=== PATIENT | female | born 1935 | race Caucasian/White ===

== ENCOUNTER 2024-01-27 17:08 | Emergency (ER) | payer MEDICARE ==
[~2024-01-27] VITALS: Wt 65.8 kg
[~2024-01-27 17:08] MED LIST: ACETAMINOPHEN325 M2 PO; AMLODIPINE BESY10 MG PO; APRESOLINE25 MG PO; ASPIRIN 81 MG; ASPIRIN CHEWABL81 MG PO; B COMPLEX1 EACH PO; DAILY VALUE1 EACH PO; DULOXETINE HCL30 MG PO; HUMALOG100 UNIT/2 SC; HYDROXYZINE PAM25 M1 PO; IMIPRAMINE HCL50 MG PO; IMIPRAMINE PAM100 MG PO; IRBESARTAN300 M1 PO; LEADER NATUR1000 MCG PO; MECLIZINE HCL25 M2 PO; MILK OF MA2400 MG/11 PO; MIRTAZAPINE7.5 MG PO; ONDANSETRON HYDR4 M1 PO; ONDANSETRON4 MG SL; OXYBUTYNIN5 MG PO; TOFRANIL10 MG PO; XANAX0.5 MG PO
[2024-01-27 17:29] LABS: MEAN CELL VOLUME 89.5 fl (81.0-99.0); MEAN CORPUSCULAR HGB 29.4 pg (27.0-31.0); MEAN CORPUSCULAR HGB CONC 32.8 g/dl (33.0-37.0); MEAN PLATELET VOLUME 8.2 fl (9.6-12.3); NUCLEATED RED BLOOD CELL 0.1 10*3/uL (0.0-0.0); NUCLEATED RED BLOOD CELL 1.2 % (0.0-0.0); PLATELET COUNT AUTOMATED 244 10*3/uL (130-400); RED BLOOD COUNT 2.28 10*6/uL (4.10-5.10); RED CELL DISTRI WIDTH 24.1 % (0-14.5); WHITE BLOOD COUNT 8.4 10*3/uL (4.8-10.8)
[2024-01-27 17:35] LABS: HEMATOCRIT 20.4 % (37.0-47.0); MANUAL DIFF REFLEX YES
[2024-01-27 17:46] LABS: BUN 14 mg/dl (9-23); CHLORIDE 106 mmol/L (98-107); POTASSIUM 3.4 mmol/L (3.4-5.1)
[2024-01-27 17:51] LABS: TOTAL CELLS COUNTED 100 #CELLS
[2024-01-27 17:52] LABS: PLATELET SUFFICIENCY NORMAL (NORMAL)
[2024-01-27 17:53] LABS: POLYCHROMASIA SLIGHT; TARGET CELLS FEW
[2024-01-27] MEDS ORDERED: VENT7GM INH (17:57)
[2024-01-27] MEDS ORDERED: 'XANAX0.5 MG PO (17:57)
[2024-01-27] MEDS ORDERED: HYDRALAZINE HC100 MG PO (17:58)
[2024-01-27] MEDS ORDERED: BREO ELLIPTA 11 EACH INH (17:58)
[2024-01-27] MEDS ORDERED: METFORMIN HYD1000 MG PO (17:59)
[2024-01-27] MEDS ORDERED: LOSARTAN POTAS100 M1 PO (17:59)
[2024-01-27] MEDS ORDERED: METOPROLOL SUCC50 M1 PO (17:59)
[2024-01-27] MEDS ORDERED: MIRTAZAPINE7.5 MG PO (18:00)
[2024-01-27] MEDS ORDERED: Ondansetron4 MG PO (18:00)
[2024-01-27] MEDS ORDERED: PROTONIX40 MG PO (18:01)
[2024-01-27] MEDS ORDERED: TRANSDERM-SCOP1 EAC1 T (18:01)
[2024-01-27] MEDS ORDERED: VITAMIN B COMP1 EAC1 PO (18:02)
[2024-01-27] MEDS ORDERED: SODIUM CHLORI1000 M5 MC (18:02)
[2024-01-27 19:45] VITALS: BP 196/57
[2024-01-27] MEDS ORDERED: SODIUM CHLORIDE 0.9% 500 ML IV ONE (19:49)
[2024-01-27 20:15] VITALS: BP 186/66
[2024-01-27 21:00] VITALS: BP 200/90
[2024-01-27 21:40] VITALS: BP 180/59
[2024-01-28] MEDS ORDERED: SODIUM CHLORIDE 0.9% 500 ML IV ONE (00:04)
[2024-01-28] MEDS ORDERED: ACETAMINOPHEN 325 MG TAB PO ONE (00:05)
[2024-01-28 00:15] VITALS: BP 175/80
[2024-01-28 00:45] VITALS: BP 180/69
[2024-01-28 01:16] VITALS: BP 174/48
[2024-01-28 02:07] VITALS: BP 187/90
== END 2024-01-28 03:07 ==
LOC: ED 17:08
PROVIDERS: Internal Medicine
DX: D63.1 Anemia in chronic kidney disease (principal); E87.1 Hypo-osmolality and hyponatremia; E11.22 Type 2 diabetes mellitus with diabetic chronic kidney disease; I12.9 Hypertensive chronic kidney disease with stage 1 through stage 4 chronic kidney disease, or unspecified chronic kidney disease; N18.31 Chronic kidney disease, stage 3a; F17.200 Nicotine dependence, unspecified, uncomplicated; Z90.710 Acquired absence of both cervix and uterus

== ENCOUNTER 2024-02-02 05:07 | Emergency (ER) | payer MEDICARE ==
[~2024-02-02] VITALS: Wt 61.0 kg
[~2024-02-02 05:07] MED LIST changes: +'XANAX0.5 MG PO; +BREO ELLIPTA 11 EACH INH; +HYDRALAZINE HC100 MG PO; +LOSARTAN POTAS100 M1 PO; +METFORMIN HYD1000 MG PO; +METOPROLOL SUCC50 M1 PO; +Ondansetron4 MG PO; +PROTONIX40 MG PO; +SODIUM CHLORI1000 M5 MC; +TRANSDERM-SCOP1 EAC1 T; +VENT7GM INH; +VITAMIN B COMP1 EAC1 PO
[2024-02-02 05:40] LABS: BILIRUBIN Negative (Negative); BLOOD Negative (Negative); CLARITY Clear (Clear); COLOR Yellow (Yellow); GLUCOSE Negative (Negative); KETONE Trace (Negative); LEUKO ESTERASE Negative (Negative); NITRITE Negative (Negative); UROBILINOGEN 0.2 E.U./dl (0.0-1.0)
[2024-02-02 05:47] LABS: HYALINE CAST 0-2; MUCOUS TRACE; RBC 0-2 rbc/hpf (0-2); WBC 0-2 wbc/hpf (0-5)
[2024-02-02 05:49] LABS: BUN 11 mg/dl (9-23); CHLORIDE 104 mmol/L (98-107); POTASSIUM 3.2 mmol/L (3.4-5.1)
[2024-02-02] MEDS ORDERED: ACETAMINOPHEN 325 MG TAB PO ONE (06:25)
[2024-02-02 06:34] LABS: BASO % 0.7 % (0.0-1.0); EOS # 0.1 10*3/uL (0.0-0.4); EOS % 1.3 % (1.0-4.0); HEMATOCRIT 32.2 % (37.0-47.0); LYMPH # 1.1 10*3/uL (1.3-4.4); LYMPH % 24.8 % (27.0-41.0); MEAN CELL VOLUME 88.5 fl (81.0-99.0); MEAN CORPUSCULAR HGB 29.7 pg (27.0-31.0); MEAN CORPUSCULAR HGB CONC 33.5 g/dl (33.0-37.0); MEAN PLATELET VOLUME 8.5 fl (9.6-12.3); MONO # 0.6 10*3/uL (0.1-1.0); MONO % 12.6 % (3.0-9.0); NEUT # 2.8 10*3/uL (2.3-7.9); NEUT % 60.2 % (47.0-73.0); PLATELET COUNT AUTOMATED 305 10*3/uL (130-400); RED BLOOD COUNT 3.64 10*6/uL (4.10-5.10); RED CELL DISTRI WIDTH 20.4 % (0-14.5); WHITE BLOOD COUNT 4.6 10*3/uL (4.8-10.8)
[2024-02-02] MEDS ORDERED: POTASSIUM CHLORIDE 20 MEQ TAB PO ONE (07:25)
== END 2024-02-02 07:44 ==
LOC: ED 05:07
PROVIDERS: Internal Medicine
DX: R55 Syncope and collapse (principal); I10 Essential (primary) hypertension; E11.9 Type 2 diabetes mellitus without complications; F17.200 Nicotine dependence, unspecified, uncomplicated; Z90.710 Acquired absence of both cervix and uterus; Z98.890 Other specified postprocedural states

== ENCOUNTER 2024-02-06 08:38 | Emergency (ER) | payer MEDICARE ==
[2024-02-06 09:24] LABS: ALKALINE PHOSPHATASE 65 U/L (46-116); BUN 7 mg/dl (9-23); CHLORIDE 106 mmol/L (98-107); POTASSIUM 3.4 mmol/L (3.4-5.1); SGPT/ALT 19 U/L (5-49); TOTAL PROTEIN 6.2 gm/dL (6.0-8.0)
[2024-02-06 09:36] LABS: BASO % 0.6 % (0.0-1.0); EOS # 0.1 10*3/uL (0.0-0.4); EOS % 1.6 % (1.0-4.0); HEMATOCRIT 31.5 % (37.0-47.0); LYMPH # 0.8 10*3/uL (1.3-4.4); LYMPH % 16.2 % (27.0-41.0); MEAN CELL VOLUME 89.7 fl (81.0-99.0); MEAN CORPUSCULAR HGB 29.3 pg (27.0-31.0); MEAN CORPUSCULAR HGB CONC 32.7 g/dl (33.0-37.0); MEAN PLATELET VOLUME 8.1 fl (9.6-12.3); MONO # 0.6 10*3/uL (0.1-1.0); NEUT # 3.3 10*3/uL (2.3-7.9); NEUT % 67.8 % (47.0-73.0); PLATELET COUNT AUTOMATED 330 10*3/uL (130-400); RED BLOOD COUNT 3.51 10*6/uL (4.10-5.10); RED CELL DISTRI WIDTH 19.6 % (0-14.5); WHITE BLOOD COUNT 4.9 10*3/uL (4.8-10.8)
[2024-02-06] MEDS ORDERED: Ondansetron Hydrochloride 4 MG TAB SL ONE (10:20)
[2024-02-06 10:27] LABS: BILIRUBIN Negative (Negative); BLOOD Negative (Negative); CLARITY Clear (Clear); COLOR Yellow (Yellow); GLUCOSE Negative (Negative); KETONE Negative (Negative); LEUKO ESTERASE Negative (Negative); NITRITE Negative (Negative); PH 5.5 (4.5-8.0); SPECIFIC GRAVITY <= 1.005 (1.001-1.030); UROBILINOGEN 0.2 E.U./dl (0.0-1.0)
[2024-02-06] MEDS ORDERED: Ondansetron4 MG PO (11:04)
[2024-02-06] MEDS ORDERED: MAGNESIUM OXIDE 400 MG TAB PO ONE (11:05)
== END 2024-02-06 11:06 | disposition home or self-care (01) ==
LOC: ED 08:38
PROVIDERS: Internal Medicine
DX: R11.2 Nausea with vomiting, unspecified (principal); R42 Dizziness and giddiness; E83.42 Hypomagnesemia; E11.22 Type 2 diabetes mellitus with diabetic chronic kidney disease; I12.9 Hypertensive chronic kidney disease with stage 1 through stage 4 chronic kidney disease, or unspecified chronic kidney disease; N18.9 Chronic kidney disease, unspecified; F03.90 Unspecified dementia, unspecified severity, without behavioral disturbance, psychotic disturbance, mood disturbance, and anxiety; D63.1 Anemia in chronic kidney disease; Z90.710 Acquired absence of both cervix and uterus; Z98.890 Other specified postprocedural states

== ENCOUNTER → 2024-04-24 | Outpatient (CLI) | payer MEDICARE ==
[2024-04-24] VITALS (7 sets, daily range): BP systolic 156–174; BP diastolic 40–67
[~2024-04-24] MED LIST changes: +ALPRAZolam 0.25 MG TAB PO ONE; +LASIX20 MG PO; +PROCHLORPERAZINE5 M2 PO; +SODIUM CHLORIDE 0.9% 250 ML IV SCH; +SODIUM CHLORIDE 0.9% 500 ML IV ONE; +SODIUM CHLORIDE 0.9% 500 ML IV SCH
== END | disposition home or self-care (01) ==
LOC: TRNFUSION 11:30
PROVIDERS: ATTEND Student in an Organized Health Care Education/Training Program
DX: D64.9 Anemia, unspecified (principal); C95.90 Leukemia, unspecified not having achieved remission; F32.9 Major depressive disorder, single episode, unspecified; E11.22 Type 2 diabetes mellitus with diabetic chronic kidney disease; I12.9 Hypertensive chronic kidney disease with stage 1 through stage 4 chronic kidney disease, or unspecified chronic kidney disease; F41.9 Anxiety disorder, unspecified; F03.90 Unspecified dementia, unspecified severity, without behavioral disturbance, psychotic disturbance, mood disturbance, and anxiety; N18.9 Chronic kidney disease, unspecified; Z90.710 Acquired absence of both cervix and uterus; Z87.440 Personal history of urinary (tract) infections; Z90.10 Acquired absence of unspecified breast and nipple

== ENCOUNTER 2024-05-21 11:21 | Inpatient (IN) | payer MEDICARE ==
[2024-05-21] VITALS (8 sets, daily range): BP systolic 94–156; BP diastolic 42–65
[~2024-05-21] VITALS: Ht 167.6 cm; Wt 64.5 kg
[~2024-05-21 11:21] MED LIST changes: -ALPRAZolam 0.25 MG TAB PO ONE; +NYST SUSP PO; +PREDNISONE5 MG PO; -SODIUM CHLORIDE 0.9% 250 ML IV SCH; -SODIUM CHLORIDE 0.9% 500 ML IV ONE; -SODIUM CHLORIDE 0.9% 500 ML IV SCH
[2024-05-21] MEDS ORDERED: SODIUM CHLORIDE 0.9% 1,000 ML IV ONE ×2 (11:30→11:45)
[2024-05-21] MEDS ORDERED: Meclizine Hydrochloride 25 MG TAB PO ONE (11:30)
[2024-05-21] MEDS ORDERED: ACETAMINOPHEN 325 MG TAB PO ONE (11:40)
[2024-05-21] MEDS ORDERED: Ondansetron Hydrochloride 4 MG/2 ML VIAL IV ONE (11:40)
[2024-05-21] MEDS ORDERED: SODIUM CHLORIDE 0.9% 500 ML IV ONE (11:45)
[2024-05-21 11:51] LABS: HEMATOCRIT 21.2 % (37.0-47.0); MEAN CELL VOLUME 89.1 fl (81.0-99.0); MEAN CORPUSCULAR HGB 30.3 pg (27.0-31.0); MEAN PLATELET VOLUME 8.5 fl (9.6-12.3); NUCLEATED RED BLOOD CELL 0.1 10*3/uL (0.0-0.0); NUCLEATED RED BLOOD CELL 0.6 % (0.0-0.0); PLATELET COUNT AUTOMATED 221 10*3/uL (130-400); RED BLOOD COUNT 2.38 10*6/uL (4.10-5.10); RED CELL DISTRI WIDTH 20.4 % (0-14.5); WHITE BLOOD COUNT 7.8 10*3/uL (4.8-10.8)
[2024-05-21 11:53] LABS: MANUAL DIFF REFLEX YES
[2024-05-21] MEDS ORDERED: Metoprolol Tartrate 5 MG/5 ML VIAL IV ONE (12:05)
[2024-05-21 12:14] LABS: PLATELET SUFFICIENCY NORMAL (NORMAL); POLYCHROMASIA SLIGHT; SCHISTOCYTES FEW; TOTAL CELLS COUNTED 100 #CELLS
[2024-05-21 12:27] LABS: BUN 15 mg/dl (9-23); CHLORIDE 99 mmol/L (98-107); POTASSIUM 2.5 mmol/L (3.4-5.1)
[2024-05-21] MEDS ORDERED: Ceftriaxone Sodium 1 GM/10 ML SYR IV ONE (12:55)
[2024-05-21] MEDS ORDERED: MAGNESIUM SULFATE 50 ML IV ONE ×3 (12:55→19:25)
[2024-05-21] MEDS ORDERED: AZITHROMYCIN 250 ML IV ONE (12:55)
[2024-05-21] MEDS ORDERED: POTASSIUM CHLORIDE 20 MEQ TAB PO ONE ×3 (12:55→19:25)
[2024-05-21] MEDS ORDERED: HEPARIN SODIUM 250 ML IV SCH (13:40)
[2024-05-21] MEDS ORDERED: Diltiazem Hydrochloride 100 ML IV SCH (13:45)
[2024-05-21 13:51] LABS: BILIRUBIN Negative (Negative); BLOOD Trace-Lysed (Negative); CLARITY Clear (Clear); COLOR Yellow (Yellow); GLUCOSE Negative (Negative); KETONE Negative (Negative); LEUKO ESTERASE Negative (Negative); NITRITE Negative (Negative); UROBILINOGEN 0.2 E.U./dl (0.0-1.0)
[2024-05-21 13:59] LABS: BACTERIA 1+
[2024-05-21 14:00] LABS: RBC 31-40 rbc/hpf (0-2)
[2024-05-21 14:03] LABS: HYALINE CAST 0-2
[2024-05-21] MEDS ORDERED: Magnesium Hydroxide 30 ML UDC PO PRN (14:15)
[2024-05-21] MEDS ORDERED: ACETAMINOPHEN 650 MG SUPP R PRN (14:15)
[2024-05-21] MEDS ORDERED: ACETAMINOPHEN 325 MG TAB PO PRN (14:15)
[2024-05-21] MEDS ORDERED: Acetaminophen/Hydrocodone 5 MG/325 MG TABLET PO PRN (14:15)
[2024-05-21] MEDS ORDERED: BISACODYL 5 MG TAB PO PRN (14:15)
[2024-05-21] MEDS ORDERED: Ondansetron Hydrochloride 4 MG/2 ML VIAL IV PRN (14:15)
[2024-05-21] MEDS ORDERED: BISACODYL 10 MG SUPP R PRN (14:15)
[2024-05-21] MEDS ORDERED: Albuterol Sulf/Ipratropium 3 ML VIAL NEB SCH (15:00)
[2024-05-21] MEDS ORDERED: XANAX0.5 MG PO (15:26)
[2024-05-21] MEDS ORDERED: REMERON15 M2 PO (15:26)
[2024-05-21] MEDS ORDERED: TOPROL XL25 MG PO (15:27)
[2024-05-21] MEDS ORDERED: ALPRAZolam 0.5 MG TAB PO PRN (15:30)
[2024-05-21] MEDS ORDERED: Pantoprazole Sodium 40 MG TAB PO SCH (16:30)
[2024-05-21 16:49] LABS: ACT PARTIAL THROMBO TIME 26.2 SECONDS (20.0-32.1)
[2024-05-21] MEDS ORDERED: CYMBALTA60 MG PO (17:14)
[2024-05-21] MEDS ORDERED: DEXTROSE 10 % IN WATER 250 ML IV PRN (17:50)
[2024-05-21 18:29] LABS: BUN 15 mg/dl (9-23); CHLORIDE 104 mmol/L (98-107); POTASSIUM 3.1 mmol/L (3.4-5.1)
[2024-05-21] MEDS ORDERED: Mirtazapine 15 MG TAB PO SCH (22:00)
[2024-05-21] MEDS ORDERED: hydrALAZINE hydrochloride 50 MG TAB PO SCH (22:00)
[2024-05-21] MEDS ORDERED: INSULIN LISPRO 1 UNIT/0.01 ML SQ SCH (22:00)
[2024-05-21] MEDS ORDERED: GUAIFENESIN 600 MG TAB ER PO SCH (22:00)
[2024-05-21] MEDS ORDERED: methylPREDNISolone sod succ 40 MG VIAL IV SCH (22:00)
[2024-05-21] MEDS ORDERED: DICLOFENAC SODI50 GM T (22:39)
[2024-05-21] MEDS ORDERED: BALANCED B-501 EAC1 PO (22:44)
[2024-05-21] MEDS ORDERED: COMPAZINE5 M3 PO (22:46)
[2024-05-21] MEDS ORDERED: IBUPROFEN400 MG PO (22:46)
[2024-05-22] VITALS (13 sets, daily range): BP systolic 124–153; BP diastolic 45–68
[2024-05-22 07:27] LABS: BASO % 0.2 % (0.0-1.0); EOS % 0.2 % (1.0-4.0); MEAN CELL VOLUME 90.9 fl (81.0-99.0); MEAN CORPUSCULAR HGB 30.5 pg (27.0-31.0); MEAN CORPUSCULAR HGB CONC 33.5 g/dl (33.0-37.0); MONO # 0.1 10*3/uL (0.1-1.0); MONO % 2.7 % (3.0-9.0); NEUT # 4.5 10*3/uL (2.3-7.9); NEUT % 85.8 % (47.0-73.0); NUCLEATED RED BLOOD CELL 0.6 % (0.0-0.0); PLATELET COUNT AUTOMATED 212 10*3/uL (130-400); RED BLOOD COUNT 1.97 10*6/uL (4.10-5.10); RED CELL DISTRI WIDTH 20.4 % (0-14.5); WHITE BLOOD COUNT 5.2 10*3/uL (4.8-10.8)
[2024-05-22 07:33] LABS: HEMATOCRIT 17.9 % (37.0-47.0)
[2024-05-22 07:46] LABS: FREE T4 1.37 ng/dl (0.89-1.76); TOTAL PROTEIN 5.4 gm/dL (6.0-8.0)
[2024-05-22 08:08] LABS: VITAMIN D, 25-HYDROXY 44.8 ng/mL (30-100)
[2024-05-22 08:26] LABS: PLATELET SUFFICIENCY NORMAL (NORMAL); POLYCHROMASIA SLIGHT; SCHISTOCYTES FEW; SPHEROCYTES FEW; TOTAL CELLS COUNTED 100 #CELLS
[2024-05-22] MEDS ORDERED: Albuterol Sulf/Ipratropium 3 ML VIAL NEB PRN (09:10)
[2024-05-22] MEDS ORDERED: Duloxetine Hydrochloride 60 MG CAP PO SCH (10:00)
[2024-05-22] MEDS ORDERED: Losartan Potassium 50 MG TAB PO SCH (10:00)
[2024-05-22] MEDS ORDERED: METOPROLOL SUCCINATE XR 50 MG TAB PO SCH (10:00)
[2024-05-22] MEDS ORDERED: amLODIPine besylate 10 MG TAB PO SCH (10:00)
[2024-05-22] MEDS ORDERED: METOPROLOL SUCCINATE XR 25 MG TAB PO SCH (10:00)
[2024-05-22] MEDS ORDERED: FUROSEMIDE 20 MG TAB PO SCH (10:00)
[2024-05-22] MEDS ORDERED: Prochlorperazine Maleate 5 MG TAB PO SCH (10:00)
[2024-05-22] MEDS ORDERED: Ceftriaxone Sodium 1 GM in SYRINGE INFUSION 10 ML IV SCH (13:00)
[2024-05-22] MEDS ORDERED: AZITHROMYCIN 250 ML IV SCH (14:00)
[2024-05-22] MEDS ORDERED: HEEL PROTECTOR DEVICE ONE (14:40)
[2024-05-22] MEDS ORDERED: SODIUM CHLORIDE 0.9% 500 ML IV ONE ×2 (18:00→18:11)
[2024-05-23] VITALS: BP 144/49
[2024-05-23 05:27] LABS: POTASSIUM 4.2 mmol/L (3.4-5.1)
[2024-05-23 06:13] LABS: HEMATOCRIT 21.6 % (37.0-47.0); MEAN CORPUSCULAR HGB 29.6 pg (27.0-31.0); MEAN CORPUSCULAR HGB CONC 32.9 g/dl (33.0-37.0); MEAN PLATELET VOLUME 8.8 fl (9.6-12.3); NUCLEATED RED BLOOD CELL 0.2 10*3/uL (0.0-0.0); NUCLEATED RED BLOOD CELL 2.7 % (0.0-0.0); PLATELET COUNT AUTOMATED 249 10*3/uL (130-400); RED CELL DISTRI WIDTH 19.3 % (0-14.5); WHITE BLOOD COUNT 5.6 10*3/uL (4.8-10.8)
[2024-05-23 06:16] VITALS: BP 156/56
[2024-05-23 06:27] LABS: MANUAL DIFF REFLEX YES
[2024-05-23 06:57] LABS: TOTAL CELLS COUNTED 100 #CELLS
[2024-05-23 06:58] LABS: ACANTHOCYTES FEW; BURR CELLS FEW; OVALOCYTES FEW; PLATELET SUFFICIENCY NORMAL (NORMAL); ROULEAUX SLIGHT; TARGET CELLS FEW
[2024-05-23 08:00] VITALS: BP 151/53
[2024-05-23] MEDS ORDERED: Enoxaparin Sodium 40 MG/0.4 ML SYR SC SCH (10:00)
[2024-05-23 12:00] VITALS: BP 156/62
[2024-05-23 16:00] VITALS: BP 142/60; BP 156/62
[2024-05-23 20:00] VITALS: BP 161/52
[2024-05-24] VITALS: BP 146/48
[2024-05-24 05:49] VITALS: BP 162/71
[2024-05-24 07:05] LABS: HEMATOCRIT 24.6 % (37.0-47.0); MEAN CELL VOLUME 89.8 fl (81.0-99.0); MEAN CORPUSCULAR HGB 30.7 pg (27.0-31.0); MEAN CORPUSCULAR HGB CONC 34.1 g/dl (33.0-37.0); MEAN PLATELET VOLUME 8.6 fl (9.6-12.3); NUCLEATED RED BLOOD CELL 0.2 10*3/uL (0.0-0.0); NUCLEATED RED BLOOD CELL 2.4 % (0.0-0.0); RED BLOOD COUNT 2.74 10*6/uL (4.10-5.10); RED CELL DISTRI WIDTH 19.6 % (0-14.5); WHITE BLOOD COUNT 8.8 10*3/uL (4.8-10.8)
[2024-05-24 07:17] LABS: PLATELET COUNT AUTOMATED 324 10*3/uL (130-400)
[2024-05-24 07:18] LABS: MANUAL DIFF REFLEX YES
[2024-05-24 07:26] LABS: TOTAL CELLS COUNTED 100 #CELLS
[2024-05-24 07:28] LABS: PLATELET SUFFICIENCY NORMAL (NORMAL)
[2024-05-24 07:30] LABS: ACANTHOCYTES FEW; BURR CELLS FEW; OVALOCYTES FEW; POLYCHROMASIA SLIGHT; SCHISTOCYTES FEW
[2024-05-24 07:34] LABS: POTASSIUM 4.2 mmol/L (3.4-5.1)
[2024-05-24 08:00] VITALS: BP 176/59
[2024-05-24] MEDS ORDERED: BENZOCAINE 20% 11.9 GM GEL T ONE (09:55)
[2024-05-24 12:00] VITALS: BP 170/61
[2024-05-24] MEDS ORDERED: amLODIPine besylate 10 MG TAB PO SCH (13:20)
[2024-05-24] MEDS ORDERED: BENZOCAINE 20% 9 GM TUBE T SCH (14:00)
[2024-05-24] MEDS ORDERED: FOAM BANDAGE HEEL T ONE (14:24)
[2024-05-24 16:00] VITALS: BP 163/54
[2024-05-24] MEDS ORDERED: FUROSEMIDE 20 MG TAB PO SCH (18:00)
[2024-05-24 20:00] VITALS: BP 139/77; BP 161/57
[2024-05-25] VITALS: BP 161/85
[2024-05-25 06:34] LABS: HEMATOCRIT 24.6 % (37.0-47.0); MEAN CELL VOLUME 88.8 fl (81.0-99.0); MEAN CORPUSCULAR HGB CONC 33.7 g/dl (33.0-37.0); MEAN PLATELET VOLUME 8.4 fl (9.6-12.3); NUCLEATED RED BLOOD CELL 0.2 10*3/uL (0.0-0.0); NUCLEATED RED BLOOD CELL 1.3 % (0.0-0.0); PLATELET COUNT AUTOMATED 341 10*3/uL (130-400); RED BLOOD COUNT 2.77 10*6/uL (4.10-5.10); RED CELL DISTRI WIDTH 19.2 % (0-14.5); WHITE BLOOD COUNT 14.2 10*3/uL (4.8-10.8)
[2024-05-25 06:36] LABS: MANUAL DIFF REFLEX YES
[2024-05-25 07:26] LABS: POTASSIUM 4.3 mmol/L (3.4-5.1)
[2024-05-25 08:00] VITALS: BP 162/54
[2024-05-25 08:02] LABS: OVALOCYTES FEW; PLATELET SUFFICIENCY NORMAL (NORMAL); POLYCHROMASIA SLIGHT; SCHISTOCYTES FEW; TARGET CELLS FEW; TOTAL CELLS COUNTED 100 #CELLS; TOXIC GRANULATION SLIGHT
[2024-05-25 08:03] LABS: ROULEAUX SLIGHT
[2024-05-25] MEDS ORDERED: METOPROLOL SUCC50 M1 PO ×2 (08:41→12:04)
[2024-05-25] MEDS ORDERED: DOXYCYCLINE HY100 M3 PO ×2 (08:41→12:04)
== END 2024-05-25 11:45 | DRG 871 ==
LOC: ED 11:21 → 4E 13:39 → EDHOLD 13:39 → 4E 21:23
PROVIDERS: Emergency Medicine; Student in an Organized Health Care Education/Training Program; ADMIT Internal Medicine; ATTEND Internal Medicine
PROC: 30233N1 Transfusion of Nonautologous Red Blood Cells into Peripheral Vein, Percutaneous Approach (ICD-10-PCS; principal; 2024-05-22)
DX: A41.9 Sepsis, unspecified organism (principal); E43 Unspecified severe protein-calorie malnutrition; I21.4 Non-ST elevation (NSTEMI) myocardial infarction; J15.69 Pneumonia due to other Gram-negative bacteria; J96.01 Acute respiratory failure with hypoxia; N30.01 Acute cystitis with hematuria; C95.91 Leukemia, unspecified, in remission; Z66 Do not resuscitate; I48.91 Unspecified atrial fibrillation; E87.6 Hypokalemia; I10 Essential (primary) hypertension; E11.9 Type 2 diabetes mellitus without complications; R65.20 Severe sepsis without septic shock; I89.0 Lymphedema, not elsewhere classified; L60.3 Nail dystrophy; B35.1 Tinea unguium; I83.015 Varicose veins of right lower extremity with ulcer other part of foot; I83.025 Varicose veins of left lower extremity with ulcer other part of foot; L97.519 Non-pressure chronic ulcer of other part of right foot with unspecified severity; L97.529 Non-pressure chronic ulcer of other part of left foot with unspecified severity; E83.42 Hypomagnesemia; D64.9 Anemia, unspecified; S81.802A Unspecified open wound, left lower leg, initial encounter; C50.919 Malignant neoplasm of unspecified site of unspecified female breast; S81.801A Unspecified open wound, right lower leg, initial encounter; Z79.899 Other long term (current) drug therapy; Z79.01 Long term (current) use of anticoagulants; Z79.2 Long term (current) use of antibiotics; Z90.710 Acquired absence of both cervix and uterus; Z82.49 Family history of ischemic heart disease and other diseases of the circulatory system; X58.XXXA Exposure to other specified factors, initial encounter; Y93.89 Activity, other specified; Y92.89 Other specified places as the place of occurrence of the external cause; Y99.8 Other external cause status; Z68.22 Body mass index [BMI] 22.0-22.9, adult

== ENCOUNTER → 2024-05-29 | Outpatient (CLI) | payer MEDICARE ==
[~2024-05-29] MED LIST changes: +BALANCED B-501 EAC1 PO; +COMPAZINE5 M3 PO; +CYMBALTA60 MG PO; +DICLOFENAC SODI50 GM T; +DOXYCYCLINE HY100 M3 PO; +IBUPROFEN400 MG PO; +REMERON15 M2 PO; +SODIUM CHLORIDE 0.9% 500 ML IV ONE; +TOPROL XL25 MG PO
[2024-05-29 07:54] VITALS: BP 185/61
[2024-05-29 08:23] VITALS: BP 179/69
[2024-05-29 08:53] VITALS: BP 179/69
[2024-05-29 09:23] VITALS: BP 188/71
[2024-05-29 09:53] VITALS: BP 182/74
[2024-05-29 10:23] VITALS: BP 190/78
== END | disposition home or self-care (01) ==
LOC: TRNFUSION 00:31
PROVIDERS: ATTEND Student in an Organized Health Care Education/Training Program
DX: D64.9 Anemia, unspecified (principal)